=== PATIENT | male | born 1985 | race Caucasian/White ===

== ENCOUNTER 2025-08-16 22:33 | Emergency (ER) | payer OTHER ==
[2025-08-16 22:48] LABS: #Basophils 0.1 thou/uL (0.0-0.2); #Eosinophils 0.0 thou/uL (0.0-0.7); #Lymphocytes 1.2 thou/uL (1.20-3.40); #Monocytes 0.7 thou/uL (0.11-0.59); #Neutrophils 12.0 thou/uL (1.40-6.50); %Basophils 0.6 % (0.0-1.0); %Eosinophils 0.3 % (0.0-10.0); %Lymphocytes 8.3 % (21.0-51.0); %Monocytes 5.2 % (0.0-10.0); %Neutrophils 85.7 % (42.0-75.0); Hematocrit 44.9 % (42.0-52.0); Hemoglobin 14.1 g/dL (14.0-18.0); Mean Corpuscular Hemoglobin 28.8 pg (27.0-31.0); Mean Corpuscular Volume 91.8 fl (78.0-98.0); Platelet Count 235 10x3/uL (130-400); Red Blood Cell (RBC) Count 4.89 mill/uL (4.70-6.10); White Blood Cell (WBC) Count 14.0 10x3/uL (4.8-10.8)
[2025-08-16] MEDS ORDERED: Acetaminophen 325 MG TAB ONE (22:54)
[2025-08-16 23:06] LABS: Troponin I 0.011 ng/mL (< 0.028)
[2025-08-16 23:11] LABS: ALT (SGPT) 32 U/L (Less than 45); AST (SGOT) 49 U/L (11-34); Albumin 3.7 g/dL (3.1-4.5); Alkaline Phosphatase 118 U/L (40-110); Anion Gap 18 mmol/L (10-20); BUN (Urea Nitrogen) 9 mg/dL (8.9-20.6); Bilirubin, Total 0.7 mg/dL (0.3-1.2); Calc. Creatinine Clearance 0 mL/min (70-130); Calcium 7.7 mg/dL (7.8-10.44); Carbon Dioxide 15 mmol/L (22-29); Chloride 113 mmol/L (98-107); Globulin 3.3 g/dL (2.4-3.5); Glucose 113 mg/dL (70-105); Lipase 39 U/L (8-78); Potassium 3.7 mmol/L (3.5-5.1); Sodium 142 mmol/L (136-145)
[2025-08-17 01:08] LABS: Troponin I 0.014 ng/mL (< 0.028)
== END 2025-08-17 01:19 ==
LOC: MADERS 22:33
DX: S05.11XA Contusion of eyeball and orbital tissues, right eye, initial encounter (principal); R07.89 Other chest pain; F10.129 Alcohol abuse with intoxication, unspecified; I10 Essential (primary) hypertension; Y90.8 Blood alcohol level of 240 mg/100 ml or more; Y04.8XXA Assault by other bodily force, initial encounter
CPT/HCPCS: 71045; 80053; 80307; 83690; 84484; 85025; 93005